=== PATIENT | female | born 1985 | race Caucasian/White ===

== ENCOUNTER 2017-02-10 04:45 | Inpatient (IN) | payer OTHER ==
[2017-02-10] MEDS ORDERED: Carboprost Tromethamine 250 MCG/1 ML Amp IM PRN (05:22)
[2017-02-10] MEDS ORDERED: Sodium Chloride 0.9% 2.5 ML Syringe FLUSH PRN (05:22)
[2017-02-10] MEDS ORDERED: Sodium Chloride 0.9% 10 ML Syringe FLUSH PRN (05:22)
[2017-02-10] MEDS ORDERED: Water For Irrigation,Sterile 1,000 ML Container IRR PRN (05:22)
[2017-02-10] MEDS ORDERED: Misoprostol 200 MCG Tab PO PRN (05:22)
[2017-02-10] MEDS ORDERED: Lidocaine 1% 50 ML MDV INJECT PRN (05:22)
[2017-02-10] MEDS ORDERED: Terbutaline 1 MG/ML SDV SUBCUT PRN (05:22)
[2017-02-10] MEDS ORDERED: Butorphanol 1 MG/ML SDV IVPUSH PRN (05:22)
[2017-02-10] MEDS ORDERED: Nalbuphine 10 MG/1 ML Vial IVPUSH PRN (05:22)
[2017-02-10] MEDS ORDERED: Methylergonovine 0.2 MG/1 ML Amp IM PRN (05:22)
[2017-02-10] MEDS ORDERED: Oxytocin/Lactated Ringers 30 UNIT/500 ML BAG IV SCH ×2 (05:30)
[2017-02-10] MEDS ORDERED: Lactated Ringers 1,000 ML IV SCH (05:30)
[2017-02-10] MEDS ORDERED: Lanolin 100% Cream 7 GM Tube TOP PRN (09:26)
[2017-02-10] MEDS ORDERED: Docusate Sodium 100 MG Cap PO PRN (09:26)
[2017-02-10] MEDS ORDERED: Aluminum Hydroxide/Magnesium Hydroxide/Simethicone Susp 30 ML Cup PO PRN (09:26)
[2017-02-10] MEDS ORDERED: Ibuprofen 800 MG Tab PO PRN (09:26)
[2017-02-10] MEDS ORDERED: Ibuprofen 400 MG Tab PO PRN (09:26)
[2017-02-10] MEDS ORDERED: Bisacodyl 10 MG Supp RECTAL PRN (09:26)
[2017-02-10] MEDS ORDERED: Witch Hazel Medicated Pads 40/Jar TOP PRN (09:26)
[2017-02-10] MEDS ORDERED: Benzocaine/Menthol 20%-0.5% Spray 78 GM Cannister TOP PRN (09:26)
[2017-02-10] MEDS ORDERED: oxyCODONE 5 MG Tab PO PRN (09:26)
[2017-02-10] MEDS ORDERED: Acetaminophen 500 MG Tab PO PRN ×2 (09:26)
--- NOTE | 2017-02-10 16:24 | OR ---
SURGEON: Audelia Martinez M.D. DATE OF PROCEDURE: 02/10/2017 PREOPERATIVE DIAGNOSES: 1. A 40 and 3 weeks intrauterine . 2. Spontaneous rupture of membranes and active labor. POSTOPERATIVE DIAGNOSES: 1. A 40 and 3 weeks intrauterine . 2. Spontaneous rupture of membranes and active labor. PROCEDURE: Spontaneous vaginal delivery, intact perineum. ESTIMATED BLOOD LOSS: 300 mL. ANESTHESIA: None. COMPLICATIONS: None known. FINDINGS: Term female. score 9 at 1 minute and 9 at 5 minutes. Weight of 3800 g. Spontaneous delivery, intact placenta, three-vessel cord. Light meconium- stained amniotic fluid noted. DISPOSITION: to Nursery and Mom in LDRP, stable. PROCEDURE DETAILS: Shey is a 31-year-old G5, P 3-0-1-3 at 40 and 3 weeks gestation. She presented on the morning of 02/10/2017 with leakage of fluid since approximately at 1:00 a.m. with increasing contractions since about 3:00 a.m. Upon presentation shortly after 5:00 a.m., she was found to be 6 cm reji regularly every 1- 2 minutes. Therefore, she was admitted. Routine labs drawn. IV hydration was initiated. heart tones 120s with variability. The patient continued to progress through the next couple of hours to complete with feeling of urge to push. Upon my arrival, the patient was placed in modified dorsal lithotomy position. She was prepped and draped in the usual aseptic manner. At that time, the patient began pushing efforts and was able to push readily. Within the next 2-3 contractions, I was able deliver 's head atraumatically, spontaneously, followed by anterior shoulder, posterior shoulder, remainder of body without difficulty. A loose nuchal cord x1 was reduced manually. The 's oropharynx and nares bulb suctioned. Cord clamped x2 and cut. was handed off to her mother with her attending nursing staff at her side. Cord arterial, cord venous, cord blood sampling was obtained. Light suprapubic pressure was applied with 30 units of Pitocin was delivered in 500 mL of IV fluid. Upon inspection of cervix, vaginal sidewalls, and perineum, there was found to be an intact perineum. The patient tolerated the procedure well. Uterus remained firm. Hemostasis remained evident. She will remain in LDRP. Infant in nursery. There was light meconium-stained fluid noted. The infant was vigorous and bulb suctioned accordingly. PAULA / JIMI /[id number]
[2017-02-11 07:49] VITALS: BP 118/72
--- NOTE | 2017-02-11 08:11 | PCM.PNPP ---
- General Info Date of Service: 02/11/17 Subjective Update: Feeling well overall--ambulating, voiding, lochia is dissipating. Pain is well controlled. Would like to go home today. Functional Status: Reports: pain controlled, tolerating diet, ambulating, urinating - Review of Systems General: Denies: Fever, Weakness Pulmonary: Denies: shortness of breath Cardiovascular: Denies: Chest Pain, Palpitations, Lightheadedness Gastrointestinal: Denies: Nausea, Vomiting Genitourinary: Denies: flank pain Skin: Reports: no symptoms Psychiatric: Reports: no symptoms - General Info Date of Service: 02/11/17 - Patient Data Vital Signs - most recent: Last Vital Signs Temp 36.6 C 02/11/17 07:48 Pulse 67 02/11/17 07:48 Resp 16 02/11/17 07:48 BP 118/72 02/11/17 07:48 Pulse Ox 98 02/11/17 07:48 Weight - most recent: 90.718 kg Lab Results - last 24 hrs: Laboratory Results - last 24 hr 02/11/17 Range/Units 05:05 Hgb 10.7 L (12.0-16.0) g/dL Hct 32.3 L (36.0-46.0) % Med Orders - Current: Current Medications Acetaminophen (Tylenol Extra Strength) 500 mg PO Q4H PRN PRN Reason: Pain Acetaminophen (Tylenol Extra Strength) 1,000 mg PO Q4H PRN PRN Reason: Pain Al Hydroxide/Mg Hydroxide (Mag-Al Plus) 30 ml PO Q8H PRN PRN Reason: Heartburn Benzocaine/Menthol (Dermoplast Pain Relief 20%-0.5% Sel[place]) 78 gm TOP ASDIRECTED PRN PRN Reason: Perineal Comfort Measure Bisacodyl (Dulcolax) 10 mg RECTAL .ONCE PRN PRN Reason: Constipation Carboprost Tromethamine (Hemabate Ds) 250 mcg IM ASDIRECTED PRN PRN Reason: Post Hemorrhage Docusate Sodium (Colace) 100 mg PO BID PRN PRN Reason: Constipation Emollient Ointment (Lansinoh Hpa) 0 gm TOP ASDIRECTED PRN PRN Reason: Sore Nipples Oxytocin/Lactated Ringer's (Pitocin In Lr 30 Units/500 Ml) 30 unit in 500 mls @ 2 mls/hr IV TITRATE CRUZ; 2 MUNITS/MIN PRN Reason: Protocol Ibuprofen (Motrin) 400 mg PO Q4H PRN PRN Reason: Pain Ibuprofen (Motrin) 800 mg PO Q6H PRN PRN Reason: Pain Methylergonovine Maleate (Methergine) 0.2 mg IM ASDIRECTED PRN PRN Reason: Post Hemorrhage Oxycodone HCl (Oxycodone) 5 mg PO Q2H PRN PRN Reason: Pain Sodium Chloride (Saline Flush) 2.5 ml FLUSH ASDIRECTED PRN PRN Reason: Keep Vein Open Witch Lindsay (Tucks) 1 pad TOP ASDIRECTED PRN PRN Reason: comfort care Discontinued Medications Butorphanol Tartrate (Stadol) 1 mg IVPUSH ASDIRECTED PRN PRN Reason: Pain Lactated Ringer's (Ringers, Lactated) 1,000 mls @ 150 mls/hr IV ASDIRECTED CRUZ Last Admin: 02/10/17 05:30 Dose: 150 mls/hr Oxytocin/Lactated Ringer's (Pitocin In Lr 30 Units/500 Ml) 30 unit in 500 mls @ 999 mls/hr IV TITRATE CRUZ PRN Reason: 999 MUNITS/MIN Stop: 02/10/17 06:01 Lidocaine HCl (Xylocaine 1%) 50 ml INJECT .ONCE PRN PRN Reason: Laceration repair Misoprostol (Cytotec) 200 mcg PO .ONCE PRN PRN Reason: Post Hemorrhage Nalbuphine HCl (Nubain) 10 mg IVPUSH ASDIRECTED PRN PRN Reason: Pain (severe 7-10) Stop: 02/12/17 05:23 Sodium Chloride (Saline Flush) 10 ml FLUSH ASDIRECTED PRN PRN Reason: Keep Vein Open Sterile Water (Sterile Water For Irrigation) 1,000 ml IRR ASDIRECTED PRN PRN Reason: delivery Last Admin: 02/10/17 09:39 Dose: 1,000 ml Terbutaline Sulfate (Brethine) 0.25 mg SUBCUT ASDIRECTED PRN PRN Reason: Tacysystole - Infant Interaction Disposition, : in Room with Family Infant Interaction: Holding Infant Infant Feeding: Breastfed Infant; Nursed Well Support Person: - Recovery Exam Fundal Tone: Firm Fundal Level: 1 Fingerbreadths Below Umbilicus Fundal Placement: Midline Lochia Amount: Scant Lochia Color: Rubra/Red Perineum Description: Intact, Minimal Bruising/Swelling Episiotomy/Laceration: None Bladder Status: Voiding Urinary Elimination: Voided - Exam General: alert, oriented Lungs: Normal respiratory effort Cardiovascular: Regular Rate, Regular Rhythm Abdomen: bowel sounds present, soft. No: CVA tenderness Extremities: no calf tenderness Skin: warm, dry, intact Psy/Mental Status: alert, normal affect - Problem List & Annotations (1) Vaginal delivery SNOMED Code(s): 677366776 Code(s): O80 - ENCOUNTER FOR FULL-TERM UNCOMPLICATED DELIVERY Status: Acute Current Visit: Yes - Problem List Review Problem List Initiated/Reviewed/Updated: Yes - My Orders Last 24 Hours: My Active Orders 02/10/17 09:26 Patient Status [ADT] Routine May Shower [RC] ASDIRECTED Up ad Jacey [RC] ASDIRECTED Vital Signs [RC] PER UNIT ROUTINE Acetaminophen [Tylenol Extra Strength] 1,000 mg PO Q4H PRN Acetaminophen [Tylenol Extra Strength] 500 mg PO Q4H PRN Alum Hydrox/Mag Hydrox/Simeth [Mag-Al Plus] 30 ml PO Q8H PRN Benzocaine/Menthol [Dermoplast Pain Relief 20%-0.5% Selma] 78 gm TOP ASDIRECTED PRN Bisacodyl [Dulcolax] 10 mg RECTAL .ONCE PRN Docusate Sodium [Colace] 100 mg PO BID PRN Ibuprofen [Motrin] 400 mg PO Q4H PRN Ibuprofen [Motrin] 800 mg PO Q6H PRN Lanolin [Lansinoh HPA] See Dose Instructions TOP ASDIRECTED PRN Witch Lindsay [Tucks] 1 pad TOP ASDIRECTED PRN oxyCODONE 5 mg PO Q2H PRN Assess Lochia [WOMSER] Per Unit Routine Assess Uterine Involution [WOMSER] Per Unit Routine Ice Therapy [OM.PC] Per Unit Routine Perineal Care [OM.PC] Per Unit Routine Peripheral IV Discontinue [OM.PC] Routine Sitz Bath [OM.PC] Per Unit Routine 02/11/17 08:08 Ready for Discharge [RC] PER UNIT ROUTINE - Assessment Assessment:: PPD 1 status post /IP - Plan Plan:: Discharge to home. Discharge instructions reviewed. Infection and bleeding warnings reviewed. Follow up at [facility] 6 weeks.
== END 2017-02-11 12:00 | disposition home or self-care (01) | DRG 775 ==
LOC: MW.OBCHECK 04:45 → MW.OB 04:50 → MW.OBCHECK 05:20 → OBSVTOIN 08:46 → MW.OB 23:39
PROVIDERS: ADMIT Obstetrics & Gynecology; ATTEND Obstetrics & Gynecology
PROC: 10E0XZZ Delivery of Products of Conception, External Approach (ICD-10-PCS; principal; 2017-02-10)
DX: O77.0 Labor and delivery complicated by meconium in amniotic fluid (principal); Z3A.40 40 weeks gestation of pregnancy; Z37.0 Single live birth
CPT/HCPCS: 36415; 59025; 84112; 85014; 85018; 85027; 86850; 86900; 86901; J7120

== ENCOUNTER 2020-10-03 07:32 | Day surgery (SDC) | payer BC ==
[2020-10-03 06:59] LABS: BLOOD UREA NITROGEN,BUN 10 mg/dL (7.0-18.0); CARBON DIOXIDE,CO2 26.8 mmol/L (21.0-32.0); CHLORIDE,CL 105 mmol/L (98-107); GLUCOSE RANDOM 101 mg/dL (74-106); POTASSIUM,K 4.3 mmol/L (3.5-5.1); SODIUM,NA 142 mmol/L (136-145)
[~2020-10-03 07:32] MED LIST: Dexamethasone 4 MG/ML 5 ML MDV ONE; Midazolam 1 MG/ML 2 ML SDV ONE; Ondansetron 4 MG/2 ML SDV ONE; Propofol 200 MG/20 ML SDV ONE; Rocuronium Bromide 50 MG/5 ML Syringe ONE; Sodium Chloride 0.9% 10 ML SDV IV PRN; Sodium Chloride 0.9% 10 ML Syringe FLUSH PRN; Sodium Chloride 0.9% 2.5 ML Syringe FLUSH PRN; Succinylcholine/Sod PF 100 MG/5 ML SYRINGE IV ONE; ceFAZolin 1 GM in Premix Bag 1 BAG IV ONE; fentaNYL 100 MCG/2 ML SDV ONE
[2020-10-03] MEDS: Lactated Ringers 1,000 ML IV SCH ×3 (07:55→18:50)
--- NOTE | 2020-10-03 08:07 | PCM.PREANE ---
Preanesthetic Assessment - Anesthesia/Transfusion/Family Hx Anesthesia History: Prior Anesthesia Without Reaction Family History of Anesthesia Reaction: No Transfusion History: No Prior Transfusion(s) - Review of Systems General: No Symptoms Pulmonary: No Symptoms Cardiovascular: No Symptoms Gastrointestinal: No Symptoms Neurological: No Symptoms - Physical Assessment NPO Status Date: 10/02/20 Height: 5 ft 7 in Weight: 71.214 kg ASA Class: 2 Mental Status: Alert & Oriented x3 Airway Class: Mallampati = 2 Dentition: Reports: Normal Dentition ROM/Head Extension: Full Lungs: Clear to Auscultation, Normal Respiratory Effort Cardiovascular: Regular Rate, Regular Rhythm - Lab Values: Laboratory Last Values WBC 3.48 K/uL (4.0-11.0) L 10/03/20 06:10 RBC 4.25 M/uL (4.30-5.90) L 10/03/20 06:10 Hgb 12.3 g/dL (12.0-16.0) 10/03/20 06:10 Hct 38.0 % (36.0-46.0) 10/03/20 06:10 MCV 89.4 fL (80.0-98.0) 10/03/20 06:10 MCH 28.9 pg (27.0-32.0) 10/03/20 06:10 MCHC 32.4 g/dL (31.0-37.0) 10/03/20 06:10 RDW Std Deviation 41.8 fl (28.0-62.0) 10/03/20 06:10 RDW Coeff of Anshu 13 % (11.0-15.0) 10/03/20 06:10 Plt Count 201 K/uL (150-400) 10/03/20 06:10 MPV 10.90 fL (7.40-12.00) 10/03/20 06:10 Nucleated RBC % 0.0 /100WBC 10/03/20 06:10 Nucleated RBCs # 0 K/uL 10/03/20 06:10 Sodium 142 mmol/L (136-145) 10/03/20 06:10 Potassium 4.3 mmol/L (3.5-5.1) 10/03/20 06:10 Chloride 105 mmol/L (98-107) 10/03/20 06:10 Carbon Dioxide 26.8 mmol/L (21.0-32.0) 10/03/20 06:10 BUN 10 mg/dL (7.0-18.0) 10/03/20 06:10 Creatinine 0.8 mg/dL (0.6-1.0) 10/03/20 06:10 Est Cr Clr Drug Dosing 97.27 mL/min 10/03/20 06:10 Estimated GFR (MDRD) > 60.0 ml/min 10/03/20 06:10 Glucose 101 mg/dL (74-106) 10/03/20 06:10 Calcium 8.9 mg/dL (8.5-10.1) 10/03/20 06:10 HCG, Qual NEGATIVE (NEG) 10/03/20 06:10 SARS-CoV-2 RNA (RADHA) NEGATIVE (NEGATIVE) 10/03/20 06:07 Blood Type O POSITIVE 10/03/20 06:10 Antibody Screen NEGATIVE 10/03/20 06:10 - Allergies Allergies/Adverse Reactions: Allergies Allergy/AdvReac Type Severity Reaction Status Date / Time Dairy Products Allergy food Verified 09/27/20 14:26 sensitivity egg Allergy food Verified 09/27/20 14:26 sensitivity sulfamethoxazole Allergy Hives Verified 09/27/20 14:26 [From Bactrim] - Acknowledgements Anesthesia Type Planned: General Anesthesia Pt an Appropriate Candidate for the Planned Anesthesia: Yes Alternatives and Risks of Anesthesia Discussed w Pt/Guardian: Yes Pt/Guardian Understands and Agrees with Anesthesia Plan: Yes Additional Comments: pmh: migraine, ibs, asthma no meds), allopecia PLAN: get PreAnesthesia Questionnaire HEENT History: Reports: Other (See Below) Other HEENT History: wears glasses Cardiovascular History: Reports: None Respiratory History: Reports: Asthma Other Respiratory History: asthma as a child Gastrointestinal History: Reports: Irritable Bowel Syndrome Genitourinary History: Reports: None CERTIFIED ORTHOTIST History: Reports: Musculoskeletal History: Reports: None Neurological History: Reports: None Psychiatric History: Reports: None Endocrine/Metabolic History: Reports: None Hematologic History: Reports: Anemia Immunologic History: Reports: None Oncologic (Cancer) History: Reports: None Dermatologic History: Reports: None - Past Surgical History Head Surgeries/Procedures: Reports: None HEENT Surgical History: Reports: Oral Surgery, Tonsillectomy Cardiovascular Surgical History: Reports: None Respiratory Surgical History: Reports: None GI Surgical History: Reports: None Female Surgical History: Reports: None Endocrine Surgical History: Reports: None Neurological Surgical History: Reports: None Oncologic Surgical History: Reports: None Dermatological Surgical History: Reports: None - SUBSTANCE USE Tobacco Use Status *Q: Former Tobacco User Tobacco Use Within Last Twelve Months: No - HOME MEDS Home Medications: Home Meds Ascorbate Calcium [Vitamin C] 500 mg PO DAILY 09/27/20 [History] Calcium Carbonate/Vitamin D3 [Calcium 250+D] 6 tab PO DAILY 09/27/20 [History] Cholecalciferol (Vitamin D3) [Vitamin D3] 4 drop PO DAILY 09/27/20 [History] Fish Oil/[place]-3 Fatty Acids [Fish Oil 1,000 MG] 1,000 mg PO DAILY 09/27/20 [History] Iron 2 tab PO DAILY 09/27/20 [History] Lactobacillus Acidophilus [Probiotic] 1 tab PO DAILY 09/27/20 [History] Vitamin B Complex 2 tab PO DAILY 09/27/20 [History] - CURRENT (IN HOUSE) MEDS Current Meds: Current Medications Sodium Chloride (Saline Flush) 10 ml FLUSH ASDIRECTED PRN PRN Reason: Keep Vein Open Sodium Chloride (Saline Flush) 2.5 ml FLUSH ASDIRECTED PRN PRN Reason: Keep Vein Open Sodium Chloride (Normal Saline) 10 ml IV ASDIRECTED PRN PRN Reason: IV Use Discontinued Medications Dexamethasone (Dexamethasone) Confirm Administered Dose 20 mg .ROUTE .STK-MED ONE Stop: 10/03/20 07:01 Fentanyl (Sublimaze) Confirm Administered Dose 100 mcg .ROUTE .STK-MED ONE Stop: 10/03/20 07:03 Cefazolin Sodium/Dextrose 1 gm (/ Premix) 50 mls @ 100 mls/hr IV ONETIME ONE Stop: 10/03/20 05:29 Acetaminophen (Ofirmev) Confirm Administered Dose 100 mls @ as directed .ROUTE .STK-MED ONE Stop: 10/03/20 07:32 Lidocaine HCl (Xylocaine-Mpf 1%) Confirm Administered Dose 5 ml .ROUTE .STK-MED ONE Stop: 10/03/20 07:01 Midazolam HCl (Versed 1 Mg/Ml) Confirm Administered Dose 2 mg .ROUTE .STK-MED ONE Stop: 10/03/20 07:03 Ondansetron HCl (Zofran) Confirm Administered Dose 4 mg .ROUTE .STK-MED ONE Stop: 10/03/20 07:01 Propofol (Diprivan 20 Ml) Confirm Administered Dose 200 mg .ROUTE .STK-MED ONE Stop: 10/03/20 07:03 Rocuronium [place] (Rocuronium [place]) Confirm Administered Dose 50 mg .ROUTE .STK-MED ONE Stop: 10/03/20 07:19
[2020-10-03] MEDS ORDERED: Lactated Ringers 1,000 ML IV SCH (08:45)
[2020-10-03] MEDS ORDERED: 50% Dextrose in Water 50 ML Syringe IVPUSH PRN (08:47)
[2020-10-03] MEDS ORDERED: fentaNYL 100 MCG/2 ML SDV IVPUSH PRN (08:47)
[2020-10-03] MEDS ORDERED: Ondansetron 4 MG/2 ML SDV IVPUSH PRN ×2 (08:47→09:18)
[2020-10-03] MEDS ORDERED: Albuterol 0.083% 2.5 MG/3 ML Neb Soln NEB PRN (08:47)
[2020-10-03] MEDS ORDERED: Atropine 0.1 MG/ML 10 ML Syringe IVPUSH PRN ×2 (08:47)
[2020-10-03] MEDS ORDERED: Naloxone 0.4 MG/ML Syringe IVPUSH PRN (08:47)
[2020-10-03] MEDS ORDERED: EPINEPHrine 1:10,000 1 MG/10 ML Syringe IVPUSH PRN (08:47)
[2020-10-03] MEDS ORDERED: Fluorescein 5 ML Vial ONE (09:05)
[2020-10-03] MEDS ORDERED: Furosemide 40 MG/4 ML VIAL ONE (09:10)
[2020-10-03] MEDS ORDERED: Glycopyrrolate 0.2 MG/ML SDV ONE (09:14)
[2020-10-03] MEDS ORDERED: Morphine 4 MG/ML Syringe IVPUSH PRN (09:18)
[2020-10-03] MEDS ORDERED: Ketorolac 30 MG/ML SDV IVPUSH PRN (09:18)
[2020-10-03] MEDS ORDERED: Acetaminophen/oxyCODONE 325-5 MG Tab PO PRN ×2 (09:18)
[2020-10-03] MEDS ORDERED: Ketorolac 30 MG/ML SDV IVPUSH ONE (09:18)
[2020-10-03] MEDS ORDERED: Promethazine 25 MG/ML SDV IM PRN (09:18)
--- NOTE | 2020-10-03 09:28 | PCM.OPNOTE ---
- General Post-Op/Procedure Note Date of Surgery/Procedure: 10/03/20 Operative Procedure(s): TVH/cystoscopy Findings: Boggy mildly enlarged uterus. Normal appearing ovaries. Bilateral patent ureters. Pre Op Diagnosis: Menorrhagia Post-Op Diagnosis: Same Anesthesia Technique: General ET Tube Primary Surgeon: Audelia Martinez Fluid Replacement, Intraop: 1,100 EBL in mLs: 300 Complications: none known Condition: Good Free Text/Narrative:: Intake & Output 10/02/20 10/03/20 10/03/20 22:59 06:59 14:59 Output Total 50 Balance -50 Dictation [id number]
[2020-10-03] MEDS: HYDROmorphone 2 MG/ML Syringe IVPUSH PRN ×2 (09:36→09:45)
--- NOTE | 2020-10-03 10:07 | PCM.POSTAN ---
POST ANESTHESIA ASSESSMENT - MENTAL STATUS Mental Status: Alert, Oriented - VITAL SIGNS Vital Signs: Last Vital Signs Temp 98.9 F 10/03/20 09:26 Pulse 83 10/03/20 10:01 Resp 12 10/03/20 10:01 BP 111/62 10/03/20 10:01 Pulse Ox 100 10/03/20 10:01 - RESPIRATORY Respiratory Status: Respiratory Rate WNL, Airway Patent, O2 Saturation Stable - CARDIOVASCULAR CV Status: Pulse Rate WNL, Blood Pressure Stable - GASTROINTESTINAL GI Status: No Symptoms - POST OP HYDRATION Hydration Status: Adequate & Stable
--- NOTE | 2020-10-03 15:12 | OR ---
SURGEON: Audelia Martinez M.D. DATE OF PROCEDURE: 10/03/2020 PREOPERATIVE DIAGNOSIS: Menorrhagia. POSTOPERATIVE DIAGNOSIS: Menorrhagia. PROCEDURE: Total vaginal hysterectomy, cystoscopy. SECURITIES CLERK: Sherrill To MD ANESTHESIA: General endotracheal anesthesia. FLUIDS: 1100 mL of crystalloid. ESTIMATED BLOOD LOSS: 300 mL. COMPLICATIONS: None known. FINDINGS: Mildly enlarged boggy uterus. Normal-appearing ovaries. Bilateral patent ureters. DISPOSITION: The patient to the PACU in stable condition. SPECIMENS: To pathology. PROCEDURE DETAILS: Shey is a 35-year-old female who has ongoing difficulties with menorrhagia. At this time, she would like to proceed with definitive surgical intervention from hysterectomy. Endometrial biopsy was benign. Sonogram was reassuring. She is a reasonable candidate for a vaginal hysterectomy. Risks of procedure have been discussed. Proper consents obtained. The patient was taken to the operating room where she underwent general endotracheal anesthesia, was placed in modified dorsal lithotomy position, and was prepped and draped in usual sterile fashion. SCDs to the lower extremities. Srinivasan to gravity. Received Ancef prophylactically. Time-out was performed. Weighted speculum and anterior Elvia were placed in the vagina. Cervix grasped with Barrett clamp. Cervix circumscribed with Bovie cautery anteriorly and posteriorly. The overlying mucosa was bluntly and sharply dissected away from underlying muscularis tissue posteriorly. The peritoneum was tented downwards, entered sharply. Longer weighted speculum replaced the shorter. Anteriorly, the peritoneum was also entered, and Elvia was placed to mobilize the bladder away from operative field. Macrina clamp was utilized to secure uterosacral ligaments on either side, transected and suture ligated with 2-0 Vicryl. Remainder of suture would be 2-0 Vicryl unless otherwise specified. A further pedicle on either side including the cardinal ligament was able to be secured, transected, and suture ligated followed by a third pedicle. The remainder of the broad ligament was secured on either side, transected, and suture ligated. The utero-tuboovarian pedicle was now able to be secured on either side, transected, and suture ligated. The uterus was passed off to lead maintenance technician to be sent to Pathology. The utero tubo- ovarian pedicles were able to be inspected. The right appeared hemostatic. The left had some oozing where it looked like there was probably some scarring present. Therefore, this was oversewn with 2-0 Vicryl and hemostasis was thereafter present. The uterosacral ligament on either side was able to be secured to the vaginal apex. A small area of oozing directly behind the left uterosacral ligament was able to be plicated with suture and hemostasis thereafter evident. The pedicles once again inspected, found to be hemostatic. The cuff was closed using 0 Vicryl in continuous running locked fashion. The cuff line was inspected and found to be hemostatic. Srinivasan balloon was deflated. The catheter was removed. Fluorescein with Lasix was introduced via IV. The cystoscope was able to be introduced using normal saline as distention media. The dome of the bladder was visualized and found to be intact. The trigone was inspected. The left ureteral orifice followed by the right ureteral orifice were able to be visualized, and fluorescein-dyed urine was seen streaming from both of them with a good jet helping to ensure ureteral patency. The bladder was drained. Cystoscope was removed. The Srinivasan was replaced. The vaginal cuff once again inspected, found to be hemostatic. All instruments removed from the vagina. Patient tolerated the procedure well. She will go to PACU in stable condition. Specimens to Pathology. PAULA / JIMI /[id number]
[2020-10-03] MEDS: Belladonna Alkaloids/Opium 16.2-30 MG Supp RECTAL PRN ×2 (16:53→21:54)
--- NOTE | 2020-10-03 17:56 | PCM.SN.2 ---
- Free Text/Narrative Note: Patient is doing well overall--her nausea is regressing and pain more controlled with B&O suppository. She will try to eat in a bit. Would like catheter removed tonight. VS are reassuring. Explained findings at procedure and procedure in detail. Continue postoperative cares.
[2020-10-03] MEDS: Docusate Sodium 100 MG Cap PO SCH ×2 (21:54→21:57)
[2020-10-04] MEDS: Belladonna Alkaloids/Opium 16.2-30 MG Supp RECTAL PRN ×2 (06:10→10:34)
[2020-10-04 06:30] LABS: BLOOD UREA NITROGEN,BUN 12 mg/dL (7.0-18.0); CARBON DIOXIDE,CO2 26.5 mmol/L (21.0-32.0); CHLORIDE,CL 104 mmol/L (98-107); GLUCOSE RANDOM 120 mg/dL (74-106); POTASSIUM,K 4.2 mmol/L (3.5-5.1); SODIUM,NA 138 mmol/L (136-145)
--- NOTE | 2020-10-04 07:37 | PCM48HPAN ---
Post Anesthesia Note - EVALUATION WITHIN 48HRS OF ANESTHETIC Vital Signs in Normal Range: Yes Patient Participated in Evaluation: Yes Respiratory Function Stable: Yes Airway Patent: Yes Cardiovascular Function Stable: Yes Hydration Status Stable: Yes Pain Control Satisfactory: Yes Nausea and Vomiting Control Satisfactory: Yes Mental Status Recovered: Yes Vital Signs: Last Vital Signs Temp 37.2 C 10/04/20 04:00 Pulse 81 10/04/20 04:00 Resp 18 10/04/20 04:00 BP 110/59 L 10/04/20 04:00 Pulse Ox 98 10/04/20 04:00 - COMMENTS/OBSERVATIONS Free Text/Narrative:: The patient is sitting up in bed, and appears to be in no acute distress. She states that her pain is less than yesterday, and controlled. There were no apparent anesthetic complications at this time. Discharge from Anesthesia Services.
--- NOTE | 2020-10-04 09:40 | PCM.SURGPN ---
- General Info Date of Service: 10/04/20 POD#: 1 Functional Status: Reports: Pain Controlled, Tolerating Diet, Ambulating, Urinating - Review of Systems General: Reports: Fatigue. Denies: Fever, Weakness Pulmonary: Denies: Shortness of Breath Cardiovascular: Denies: Chest Pain, Palpitations, Lightheadedness Gastrointestinal: Reports: Abdominal Pain (mild--feels it is more gas colic) Genitourinary: Reports: No Symptoms Musculoskeletal: Reports: No Symptoms Skin: Reports: No Symptoms Neurological: Reports: No Symptoms Psychiatric: Reports: No Symptoms - Patient Data Vitals - Most Recent: Last Vital Signs Temp 37.2 C 10/04/20 04:00 Pulse 81 10/04/20 04:00 Resp 18 10/04/20 04:00 BP 110/59 L 10/04/20 04:00 Pulse Ox 98 10/04/20 04:00 Weight - Most Recent: 71.214 kg I&O - Last 24 Hours: Intake & Output 10/03/20 10/04/20 10/04/20 22:59 06:59 14:59 Intake Total 1396 2452 Output Total 150 850 Balance 1246 1602 Lab Results Last 24 Hrs: Laboratory Results - last 24 hr 10/03/20 10/04/20 10/04/20 Range/Units 16:44 05:33 05:33 WBC 7.55 (4.0-11.0) K/uL RBC 2.57 L (4.30-5.90) M/uL Hgb 7.4 L (12.0-16.0) g/dL Hct 22.3 L (36.0-46.0) % MCV 86.8 (80.0-98.0) fL MCH 28.8 (27.0-32.0) pg MCHC 33.2 (31.0-37.0) g/dL RDW Std Deviation 40.2 (28.0-62.0) fl RDW Coeff of Anshu 13 (11.0-15.0) % Plt Count 183 (150-400) K/uL MPV 10.60 (7.40-12.00) fL Neut % (Auto) 71.0 (48.0-80.0) % Lymph % (Auto) 16.2 (16.0-40.0) % [place] % (Auto) 12.7 (0.0-15.0) % Eos % (Auto) 0.1 (0.0-7.0) % Baso % (Auto) 0.0 (0.0-1.5) % Neut # (Auto) 5.4 (1.4-5.7) K/uL Lymph # (Auto) 1.2 (0.6-2.4) K/uL [place] # (Auto) 1.0 H (0.0-0.8) K/uL Eos # (Auto) 0.0 (0.0-0.7) K/uL Baso # (Auto) 0.0 (0.0-0.1) K/uL Nucleated RBC % 0.0 /100WBC Nucleated RBCs # 0 K/uL Sodium 138 (136-145) mmol/L Potassium 4.2 (3.5-5.1) mmol/L Chloride 104 (98-107) mmol/L Carbon Dioxide 26.5 (21.0-32.0) mmol/L BUN 12 (7.0-18.0) mg/dL Creatinine 0.7 (0.6-1.0) mg/dL Est Cr Clr Drug Dosing 111.16 mL/min Estimated GFR (MDRD) > 60.0 ml/min Glucose 120 H (74-106) mg/dL POC Glucose 148 H (60-110) mg/dL Calcium 8.4 L (8.5-10.1) mg/dL Med Orders - Current: Current Medications Belladonna Alkaloids/Opium (B & O Supprettes No. 15a) 1 supp RECTAL Q4H PRN PRN Reason: Abdominal Pain Last Admin: 10/04/20 06:10 Dose: 1 supp Documented by: Docusate Sodium (Colace) 100 mg PO BID [facility] Last Admin: 10/03/20 21:57 Dose: Not Given Documented by: Lactated Ringer's (Ringers, Lactated) 1,000 mls @ 125 mls/hr IV ASDIRECTED [facility] Last Admin: 10/03/20 18:50 Dose: 125 mls/hr Documented by: Ketorolac Tromethamine (Toradol) 30 mg IVPUSH Q6H PRN PRN Reason: Pain (severe 7-10) Stop: 10/08/20 09:18 Morphine Sulfate (Morphine) 4 mg IVPUSH Q2H PRN PRN Reason: Pain (severe 7-10) Last Admin: 10/03/20 12:02 Dose: 4 mg Documented by: Ondansetron HCl (Zofran) 4 mg IVPUSH Q6H PRN PRN Reason: Nausea/Vomiting Last Admin: 10/03/20 14:36 Dose: 4 mg Documented by: Oxycodone/Acetaminophen (Percocet 325-5 Mg) 1 tab PO Q4H PRN PRN Reason: Pain (moderate 4-6) Last Admin: 10/03/20 14:56 Dose: 1 tab Documented by: Oxycodone/Acetaminophen (Percocet 325-5 Mg) 2 tab PO Q4H PRN PRN Reason: Pain (moderate 4-6) Promethazine HCl (Phenergan) 25 mg IM Q6H PRN PRN Reason: Nausea/Vomiting Sodium Chloride (Saline Flush) 10 ml FLUSH ASDIRECTED PRN PRN Reason: Keep Vein Open Sodium Chloride (Saline Flush) 2.5 ml FLUSH ASDIRECTED PRN PRN Reason: Keep Vein Open Sodium Chloride (Normal Saline) 10 ml IV ASDIRECTED PRN PRN Reason: IV Use Discontinued Medications Albuterol (Proventil Neb Soln) 2.5 mg NEB ONETIME PRN PRN Reason: Wheezing Atropine Sulfate (Atropine 0.1 Mg/Ml) 0.5 mg IVPUSH ASDIRECTED PRN PRN Reason: Hypo-perfusion Atropine Sulfate (Atropine 0.1 Mg/Ml) 1 mg IVPUSH ASDIRECTED PRN PRN Reason: Hypo-Perfusion Dexamethasone (Dexamethasone) Confirm Administered Dose 20 mg .ROUTE .STK-MED ONE Stop: 10/03/20 07:01 Dextrose/Water (Dextrose 50% In Water) 50 ml IVPUSH ASDIRECTED PRN PRN Reason: Hypoglycemia Epinephrine HCl (Epinephrine 1:10,000) 1 mg IVPUSH ASDIRECTED PRN PRN Reason: ACLS Guidelines Fentanyl (Sublimaze) Confirm Administered Dose 100 mcg .ROUTE .STK-MED ONE Stop: 10/03/20 07:03 Fentanyl (Sublimaze) 50 mcg IVPUSH Q5M PRN PRN Reason: Pain Fluorescein Sodium (Ak-Fluor) Confirm Administered Dose 5 ml .ROUTE .STK-MED ONE Stop: 10/03/20 09:06 Furosemide (Lasix) Confirm Administered Dose 40 mg .ROUTE .STK-MED ONE Stop: 10/03/20 09:11 Glycopyrrolate (Robinul) Confirm Administered Dose 0.4 mg .ROUTE .STK-MED ONE Stop: 10/03/20 09:15 Hydromorphone HCl (Dilaudid) 0.5 mg IVPUSH .Q5MIN PRN PRN Reason: Pain (severe 7-10) Stop: 10/04/20 08:47 Last Admin: 10/03/20 09:45 Dose: 0.5 mg Documented by: Cefazolin Sodium/Dextrose 1 gm (/ Premix) 50 mls @ 100 mls/hr IV ONETIME ONE Stop: 10/03/20 05:29 Last Admin: 10/03/20 11:19 Dose: Not Given Documented by: Acetaminophen (Ofirmev) Confirm Administered Dose 100 mls @ as directed .ROUTE .ST-MED ONE Stop: 10/03/20 07:32 Lactated Ringer's (Ringers, Lactated) 1,000 mls @ 125 mls/hr IV ASDIRECTED [facility] Ketorolac Tromethamine (Toradol) 30 mg IVPUSH ONETIME ONE Stop: 10/03/20 09:19 Last Admin: 10/03/20 09:38 Dose: 30 mg Documented by: Lidocaine HCl (Xylocaine-Mpf 1%) Confirm Administered Dose 5 ml .ROUTE .STK-MED ONE Stop: 10/03/20 07:01 Midazolam HCl (Versed 1 Mg/Ml) Confirm Administered Dose 2 mg .ROUTE .STK-MED ONE Stop: 10/03/20 07:03 Naloxone HCl (Narcan) 0.1 mg IVPUSH ASDIRECTED PRN PRN Reason: Respiratory Depression Ondansetron HCl (Zofran) Confirm Administered Dose 4 mg .ROUTE .STK-MED ONE Stop: 10/03/20 07:01 Ondansetron HCl (Zofran) 4 mg IVPUSH ONETIME PRN PRN Reason: Nausea/Vomiting Last Admin: 10/03/20 09:50 Dose: 4 mg Documented by: Propofol (Diprivan 20 Ml) Confirm Administered Dose 200 mg .ROUTE .STK-MED ONE Stop: 10/03/20 07:03 Rocuronium [place] (Rocuronium [place]) Confirm Administered Dose 50 mg .ROUTE .STK-MED ONE Stop: 10/03/20 07:19 - Exam General: Alert, Oriented Lungs: Normal Respiratory Effort Cardiovascular: Regular Rate, Regular Rhythm GI/Abdominal Exam: Normal Bowel Sounds, Soft, Non-Tender. No: Guarding, Rigid Extremities: Non-Tender, No Pedal Edema, Normal Capillary Refill. No: Nelsy's Sign Skin: Warm Neurological: No New Focal Deficit Psy/Mental Status: Alert, Normal Affect, Normal Mood Sepsis Event Note - Evaluation Sepsis Screening Result: No Definite Risk - Focused Exam Vital Signs: Vital Signs Temp Pulse Resp BP Pulse Ox 10/04/20 04:00 37.2 C 81 18 110/59 L 98 10/03/20 23:43 36.9 C 98 16 105/67 97 10/03/20 22:00 37.6 C - Problem List & Annotations (1) Status post vaginal hysterectomy SNOMED Code(s): 470431414, 699927118 Code(s): Z90.710 - ACQUIRED ABSENCE OF BOTH CERVIX AND UTERUS Status: Acute Current Visit: Yes - Problem List Review Problem List Initiated/Reviewed/Updated: Yes - My Orders Last 24 Hours: Active Orders 24 hr Category Date Time Status Patient Status [ADT] Routine ADT 10/03/20 09:18 Active Antiembolic Devices [RC] PER UNIT ROUTINE Care 10/03/20 09:19 Active Notify Provider Intake and Out [RC] ASDIRECTED Care 10/03/20 09:18 Active Notify Provider Vital Signs [RC] ASDIRECTED Care 10/03/20 09:18 Active Oxygen Therapy [RC] ASDIRECTED Care 10/03/20 09:18 Active RT Aerosol Therapy [RC] ASDIRECTED Care 10/03/20 08:47 Active RT Aerosol Therapy [RC] ASDIRECTED Care 10/03/20 08:47 Active RT Incentive Spirometry [RC] Q2HWA Care 10/03/20 09:18 Active Ready for Discharge [RC] PER UNIT ROUTINE Care 10/04/20 09:37 Ordered Up With Assistance [RC] PER UNIT ROUTINE Care 10/03/20 09:18 Active Up ad Jacey [RC] PER UNIT ROUTINE Care 10/03/20 09:18 Active Urinary Catheter Removal [RC] Per Unit Routine Care 10/03/20 09:18 Active Vital Signs [RC] PER UNIT ROUTINE Care 10/03/20 09:18 Active Regular Diet [DIET] Diet 10/03/20 Lunch Active Acetaminophen/oxyCODONE [Percocet 325-5 MG] Med 10/03/20 09:18 Active 1 tab PO Q4H PRN Acetaminophen/oxyCODONE [Percocet 325-5 MG] Med 10/03/20 09:18 Active 2 tab PO Q4H PRN Belladonna/Opium [B & O Supprettes No. 15A] Med 10/03/20 09:18 Active 1 supp RECTAL Q4H PRN Docusate Sodium [Colace] Med 10/03/20 21:00 Active 100 mg PO BID Ketorolac [Toradol] Med 10/03/20 09:18 Active 30 mg IVPUSH Q6H PRN Lactated Ringers [Ringers, Lactated] 1,000 ml Med 10/03/20 09:20 Active IV ASDIRECTED Morphine Med 10/03/20 09:18 Active 4 mg IVPUSH Q2H PRN Ondansetron [Zofran] Med 10/03/20 09:18 Active 4 mg IVPUSH Q6H PRN Promethazine [Phenergan] Med 10/03/20 09:18 Active 25 mg IM Q6H PRN Perineal Care [OM.PC] Per Unit Routine Oth 10/03/20 09:19 Ordered Peripheral IV Discontinue [OM.PC] Routine Oth 10/03/20 09:18 Ordered Sequential Compression Device [OM.PC] Per Unit Routine Oth 10/03/20 09:18 Ordered Resuscitation Status Routine Resus Stat 10/03/20 09:18 Ordered Medication Orders Belladonna Alkaloids/Opium (B & O Supprettes No. 15a) 1 supp RECTAL Q4H PRN PRN Reason: Abdominal Pain Last Admin: 10/04/20 06:10 Dose: 1 supp Documented by: Admin: 10/03/20 21:54 Dose: 1 supp Documented by: Admin: 10/03/20 16:53 Dose: 1 supp Documented by: SAM Docusate Sodium (Colace) 100 mg PO BID [facility] Last Admin: 10/03/20 21:57 Dose: Not Given Documented by: NAPOLEON Lactated Ringer's (Ringers, Lactated) 1,000 mls @ 125 mls/hr IV ASDIRECTED [facility] Last Admin: 10/03/20 18:50 Dose: 125 mls/hr Documented by: Infusion: 10/03/20 18:50 Dose: 125 mls/hr Documented by: Admin: 10/03/20 11:00 Dose: 125 mls/hr Documented by: Infusion: 10/03/20 11:00 Dose: 125 mls/hr Documented by: Admin: 10/03/20 07:55 Dose: 125 mls/hr Documented by: JORJE Ketorolac Tromethamine (Toradol) 30 mg IVPUSH Q6H PRN PRN Reason: Pain (severe 7-10) Stop: 10/08/20 09:18 Morphine Sulfate (Morphine) 4 mg IVPUSH Q2H PRN PRN Reason: Pain (severe 7-10) Last Admin: 10/03/20 12:02 Dose: 4 mg Documented by: SAM Ondansetron HCl (Zofran) 4 mg IVPUSH Q6H PRN PRN Reason: Nausea/Vomiting Last Admin: 10/03/20 14:36 Dose: 4 mg Documented by: SAM Oxycodone/Acetaminophen (Percocet 325-5 Mg) 1 tab PO Q4H PRN PRN Reason: Pain (moderate 4-6) Last Admin: 10/03/20 14:56 Dose: 1 tab Documented by: SAM Oxycodone/Acetaminophen (Percocet 325-5 Mg) 2 tab PO Q4H PRN PRN Reason: Pain (moderate 4-6) Promethazine HCl (Phenergan) 25 mg IM Q6H PRN PRN Reason: Nausea/Vomiting Sodium Chloride (Saline Flush) 10 ml FLUSH ASDIRECTED PRN PRN Reason: Keep Vein Open Sodium Chloride (Saline Flush) 2.5 ml FLUSH ASDIRECTED PRN PRN Reason: Keep Vein Open Sodium Chloride (Normal Saline) 10 ml IV ASDIRECTED PRN PRN Reason: IV Use - Assessment Assessment (Free Text/Narrative):: POD 1 status post TVH/cystoscopy Anemia - Plan Plan (Free Text/Narrative):: Patient is feeling well today. Has been ambulating to bathroom without orthostatic symptoms. She is anemic, she states she was surprised her hemoglobin was as good as it was preoperatively, as it is usually closer to 10. She has iron at home and will continue to take. Her VS are stable and her pain is well controlled. Allow discharge to home with follow up at [facility] 2 and 6 weeks. Will reevaluate hemoglobin in 2 weeks. Discharge instructions reviewed.
[2020-10-04 09:49] VITALS: BP 113/49; PULSE 95
[2020-10-04] MEDS: Docusate Sodium 100 MG Cap PO SCH (09:58)
== END 2020-10-04 10:00 | disposition home or self-care (01) ==
LOC: MW.SDS 07:32 → MW.MS 09:58 → MW.SDS 10-04 10:00
PROVIDERS: ATTEND Obstetrics & Gynecology
DX: N85.8 Other specified noninflammatory disorders of uterus (principal); F32.9 Major depressive disorder, single episode, unspecified; J45.909 Unspecified asthma, uncomplicated; F90.9 Attention-deficit hyperactivity disorder, unspecified type; Z01.812 Encounter for preprocedural laboratory examination; Z20.822 Contact with and (suspected) exposure to COVID-19; Z90.89 Acquired absence of other organs; Z87.891 Personal history of nicotine dependence; Z88.1 Allergy status to other antibiotic agents; Z79.899 Other long term (current) drug therapy; Z91.011 Allergy to milk products; Z91.012 Allergy to eggs
CPT/HCPCS: 36415; 58260; 80048; 82962; 84703; 85025; 85027; 86850; 86900; 86901; 87635; 88307; A9270; J0131; J0330; J1100; J1170; J1885; J1940; J2001; J2250; J2270; J2405; J2704; J3490; J7120; 00944; J3010; U0002